=== PATIENT | male | born 1970 | race Caucasian/White ===

== ENCOUNTER → 2017-11-23 | Outpatient (CLI) | payer OTHER ==
[2017-11-23 16:05] LABS: BASO # 0.1 (0.0-0.2); BASO % 0.8 % (0.0-2.0); EOS # 0.4 (0.0-0.7); GRAN # 7.3 (1.4-6.5); GRAN % 69.7 % (42.2-75.2); HEMOGLOBIN 14.2 g/dl (13.5-18.0); LYMPH # 2.2 (1.2-3.4); LYMPH % 20.5 % (20.0-51.0); MEAN CELL VOLUME 94 fl (80.0-100.0); MEAN CORPUSCULAR HEMOGLOBIN 31 pg (27.0-31.0); MEAN CORPUSCULAR HGB CONC 33 g/dl (33.0-37.0); MEAN PLATELET VOLUME 9.2 fl (7.4-10.4); MONO # 0.5 (0.1-0.6); MONO % 4.6 % (1.7-9.3); PLATELET COUNT 426 K/mm3 (130-400); REDCELL DISTRIBUTION WIDTH-CV 13.4 % (11.5-14.5)
[2017-11-23 16:11] LABS: BILIRUBIN,TOTAL 0.9 mg/dL (0.0-1.0); CALCIUM 9.7 mg/dL (8.4-10.2); CREATININE, serum 0.87 mg/dL (0.66-1.25); POTASSIUM 4.1 mmol/L (3.4-5.0); TOTAL PROTEIN 7.6 gm/dL (6.4-8.2)
[2017-11-23 16:42] LABS: TSH w REFLEX 0.597 uIU/mL (0.465-4.680)
== END ==
LOC: COL.LAB 11:25
PROVIDERS: Family Medicine
DX: Z13.29 Encounter for screening for other suspected endocrine disorder (principal); E11.9 Type 2 diabetes mellitus without complications

== ENCOUNTER → 2018-02-12 | Outpatient (CLI) | payer OTHER | LOC: COL.LAB 14:09 | DX: H16.9 Unspecified keratitis (principal) ==

== ENCOUNTER 2018-08-09 18:18 | Inpatient (IN) | payer MEDICARE ==
[2018-08-09] VITALS (138 sets, daily range): O2SAT 87–100
[~2018-08-09] VITALS: Ht 190.5 cm; Wt 94.6 kg
[2018-08-09 19:07] LABS: BASO % 0.2 % (0.0-2.0); EOS # 0.2 (0.0-0.7); EOS % 1.2 % (0-4.0); GRAN # 9.6 (1.4-6.5); HEMATOCRIT 42.9 % (42.0-52.0); HEMOGLOBIN 14.7 g/dl (13.5-18.0); LYMPH # 0.7 (1.2-3.4); LYMPH % 5.7 % (20.0-51.0); MEAN CELL VOLUME 91 fl (80.0-100.0); MEAN CORPUSCULAR HEMOGLOBIN 31 pg (27.0-31.0); MEAN CORPUSCULAR HGB CONC 34 g/dl (33.0-37.0); MONO # 1.5 (0.1-0.6); MONO % 12.3 % (1.7-9.3); PLATELET COUNT 378 K/mm3 (130-400); RED BLOOD COUNT 4.74 M/mm3 (4.20-5.60); REDCELL DISTRIBUTION WIDTH-CV 11.9 % (11.5-14.5)
[2018-08-09 19:18] LABS: ACETONE,SERUM SMALL; ALANINE AMINOTRANSFERASE 34 U/L (21-72); ALBUMIN 4.8 gm/dL (3.5-5.0); ALKALINE PHOSPHATASE 118 U/L (50-136); ANION GAP 29 mmol/L (7-16); AST,SGOT 54 U/L (15-37); BILIRUBIN,TOTAL 0.8 mg/dL (0.0-1.0); BLOOD UREA NITROGEN 35 mg/dL (9-20); C-REACTIVE PROTEIN 4.7 mg/dL (0.0-0.9); CALCIUM 10.1 mg/dL (8.4-10.2); CHLORIDE 93 mmol/L (98-107); CREATININE, serum 1.51 mg/dL (0.66-1.25); LIPASE 17 U/L (23-300); POTASSIUM 4.5 mmol/L (3.4-5.0); SODIUM 135 mmol/L (137-145)
[2018-08-09 19:24] LABS: COLLECTION METHOD CLEAN CATCH
[2018-08-09 19:30] LABS: CARBON DIOXIDE 13 mmol/L (22-30); GLUCOSE 643 mg/dL (74-106)
[2018-08-09 19:32] LABS: MUCOUS Present /lpf; PH 5 (5-8); SQUAMOUS EPITHELIAL None Seen /hpf; URINE APPEARANCE Clear; URINE BACTERIA None Seen /hpf; URINE BILIRUBIN Negative (NEGATIVE); URINE BLOOD 1+ (NEGATIVE); URINE COLOR Colorless; URINE GLUCOSE 3+ (NEGATIVE); URINE KETONE 2+ (NEGATIVE); URINE LEUKOCYTE ESTERASE Negative (NEGATIVE); URINE NITRATE Negative (NEGATIVE); URINE PROTEIN(semi-quant) Negative (NEGATIVE); URINE RBC 0-2 /hpf; URINE UROBILINOGEN Negative (NEGATIVE)
[2018-08-09 19:56] LABS: ARTERIAL BLD GAS O2 SATURATION 95.6 % (92-100); ARTERIAL BLD GAS TCO2 CT 13.1; ARTERIAL BLOOD GAS BASE EXCESS -14.2 (-2-2); ARTERIAL BLOOD GAS HCO3 12.2 meq/L (22-26); ARTERIAL BLOOD GAS PCO2 30.5 mmHg (35-45); ARTERIAL BLOOD GAS PO2 93.4 mmHg (80-100); ARTERIAL BLOOD GAS pH 7.22 (7.35-7.45)
[2018-08-09 19:58] LABS: MAGNESIUM 2.6 mg/dL (1.6-2.3); PHOSPHOROUS 5.8 mg/dL (2.5-4.5)
[2018-08-09] MEDS ORDERED: SEROQUEL400 MG PO (20:12)
[2018-08-09] MEDS ORDERED: DESYREL 100MG100 MG PO (20:12)
[2018-08-09] MEDS ORDERED: LYRICA 100MG C100 M1 PO (20:12)
[2018-08-09 20:13] LABS: TROPONIN-I < 0.012 ng/mL (0.000-0.035)
[2018-08-09] MEDS ORDERED: LANTUS SOLOS100 U/ML SQ (20:13)
[2018-08-09] MEDS ORDERED: HUMALOGKP50/50 SQ (20:13)
[2018-08-09 20:29] LABS: THYROID STIMULATING HORMONE 0.499 uIU/mL (0.465-4.680)
--- NOTE | 2018-08-09 21:52 | NUR ---
Patient arrives to ICU room 2 via ED cart. He is unable follow more than simple commands and speech is garbled and confused. Patient sister at bedside and history is health retrieved from her. Patient is attached to monitors and assessment and vitals are as charted. ARTEMIO Medina at bedside. Patient is intermittently but persistently confused and attempting to pull out mauro catheter and climb from bed. Prn Ativan administered as documented per orders. Insulin gtt concentration and pump programming confirmed at bedside with LEAH Mackenzie. Care assumed at this time.
[2018-08-09 22:42] LABS: CALCIUM 8.5 mg/dL (8.4-10.2); CREATININE, serum 1.17 mg/dL (0.66-1.25); POTASSIUM 4.7 mmol/L (3.4-5.0)
--- NOTE | 2018-08-09 23:45 | NUR ---
Patient agitated and disoriented attempting to climb from bed. Unable to reorient patient at this time. See prn ativan dosing as per orders in AUG. This nurse stays at bedside while patient calms. Bed remains in low and locked position, call light within reach, rails up x3, bed alarm armed. Will continue to monitor.
[2018-08-10] VITALS (709 sets, daily range): BP systolic 92–149; BP diastolic 62–86; PULSE 75–135; TEMP 97–100.1; O2SAT 69–100
[2018-08-10 01:08] LABS: CALCIUM 8.3 mg/dL (8.4-10.2); CREATININE, serum 1.15 mg/dL (0.66-1.25); MAGNESIUM 2.3 mg/dL (1.6-2.3); PHOSPHOROUS 1.8 mg/dL (2.5-4.5); POTASSIUM 4.8 mmol/L (3.4-5.0)
[2018-08-10 02:39] LABS: CALCIUM 8.5 mg/dL (8.4-10.2); CREATININE, serum 1.11 mg/dL (0.66-1.25); POTASSIUM 4.5 mmol/L (3.4-5.0)
[2018-08-10 05:51] LABS: CALCIUM 8.7 mg/dL (8.4-10.2); CREATININE, serum 1.05 mg/dL (0.66-1.25); EOS % 0.3 % (0-4.0); GRAN # 6.5 (1.4-6.5); LYMPH # 1.8 (1.2-3.4); LYMPH % 18.4 % (20.0-51.0); MEAN CELL VOLUME 88 fl (80.0-100.0); MEAN CORPUSCULAR HGB CONC 35 g/dl (33.0-37.0); MONO # 1.2 (0.1-0.6); MONO % 12.9 % (1.7-9.3); PLATELET COUNT 289 K/mm3 (130-400); POTASSIUM 4.2 mmol/L (3.4-5.0); RED BLOOD COUNT 3.99 M/mm3 (4.20-5.60); REDCELL DISTRIBUTION WIDTH-CV 12.1 % (11.5-14.5)
[2018-08-10 05:54] LABS: HEMATOCRIT 35.2 % (42.0-52.0); MEAN CORPUSCULAR HEMOGLOBIN 31 pg (27.0-31.0)
[2018-08-10 05:55] LABS: HEMOGLOBIN 12.4 g/dl (13.5-18.0)
--- NOTE | 2018-08-10 07:10 | NUR ---
Pt asleep resting quietly until interventional tech distrupted pt which caused aggitation with pt stating "Yes sir, I am anxious" while pulling at mauro catheter line. Pt oreinted to self and person (grandmother and mother at bedside briefly to visit), disorited to place, situation, and month/year. Pt setting of bed alarm repositioning self to get out of bed - Pt unable to provide reason why. Bed alarm silenced and reset 3 times while in room performing assessment.
--- NOTE | 2018-08-10 09:11 | NUR ---
Pt becoming more anxious. Pt stated need for bowel movement, bedpan attempted with no BM. Gait belt applied, pt placed on bedside commode with no BM. Pt able to stand up in one singe movement but unsteady taking steps and standing upright. Pt placed back in bed, gait belt removed. remote encoding operations supervisor called stating concern for fall risk, continued pulling at mauro catheter line, and taking gown off - FIRE HYDRANT MECHANIC from 3rd floor will be sitter for pt.
[2018-08-10 10:05] LABS: CALCIUM 8.4 mg/dL (8.4-10.2); CREATININE, serum 0.94 mg/dL (0.66-1.25); POTASSIUM 4.3 mmol/L (3.4-5.0)
--- NOTE | 2018-08-10 10:29 | NUR ---
Pt continues making attempts to climb out of bed and pull at mauro catheter tubes. Soft mittens applied to both hands.
--- NOTE | 2018-08-10 11:00 | NUR ---
Pharmacist Jorge and MD Lorri contacted regarding insulin gtt and blood sugars. Jorge reccomended keeping insulin gtt at base starting rate of 5U/hr unitl SQ insulin started.
[2018-08-10] MEDS ORDERED: ATIVAN 0.50.5 MG/TAB PO (11:07)
--- NOTE | 2018-08-10 11:08 | NUR ---
Pharmacist at [facility] called to review medications. No short acting insulin has been picked up.
[2018-08-10 11:41] LABS: CALCIUM 8.6 mg/dL (8.4-10.2); CREATININE, serum 0.94 mg/dL (0.66-1.25); POTASSIUM 3.8 mmol/L (3.4-5.0)
[2018-08-10 13:42] LABS: CALCIUM 8.5 mg/dL (8.4-10.2); CREATININE, serum 0.89 mg/dL (0.66-1.25); POTASSIUM 3.7 mmol/L (3.4-5.0)
--- NOTE | 2018-08-10 13:59 | NUR ---
SW attempted to meet with the patient. The patient's nurse advised SW that the patient was not in a state to respond to questions. SW will attempt assessment at a later time.
--- NOTE | 2018-08-10 14:00 | NUR ---
Pt's sister Viridiana called, informed of MD Morgan's wish to intubate, perform CT scan, place central IV line, and lumbar puncture. MD Morgan spoke with Viridiana and consented family member of all aforementioned procedures, Pt then spoke with this RN and explained back to procedures correctly and agreed to administration of blood products if required. Anesthesia paged for intubation - no return call was recieved after 2 pages. MD Brock descided perform intubation himself.
--- NOTE | 2018-08-10 14:30 | NUR ---
Pt intubated without difficulty by MD Morgan with SisRN, myself, SAUL Zarate and RT Andrew at bedside. Vital signs remained stable, no hypoxia/dysrhythmia or hypotension occured. Family updated via phone.
--- NOTE | 2018-08-10 14:30 | NUR ---
Propofol and Fentanyl gtt initial starting rate per VORB from MD Morgan
[2018-08-10 15:37] LABS: CALCIUM 8.3 mg/dL (8.4-10.2); CREATININE, serum 0.94 mg/dL (0.66-1.25); POTASSIUM 4.4 mmol/L (3.4-5.0)
[2018-08-10 15:47] LABS: ARTERIAL BLD GAS O2 SATURATION 97.5 % (92-100); ARTERIAL BLD GAS TCO2 CT 19.2; ARTERIAL BLOOD GAS BASE EXCESS -6.1 (-2-2); ARTERIAL BLOOD GAS HCO3 18.3 meq/L (22-26); ARTERIAL BLOOD GAS PCO2 32.3 mmHg (35-45); ARTERIAL BLOOD GAS PO2 112.3 mmHg (80-100); ARTERIAL BLOOD GAS pH 7.37 (7.35-7.45)
--- NOTE | 2018-08-10 16:43 | NUR ---
No sedation vacation performed per VORB from MD Morgan
--- NOTE | 2018-08-10 17:30 | NUR ---
Sinan,ONLINE ADVERTISING DIRECTOR performed lumbar puncture without difficulty. Pt placed in position for procedeure. Vital signs remained stable. Pt placed supine with HOB elevated to 35 degrees.
--- NOTE | 2018-08-10 17:40 | NUR ---
Transport to/intra/return from CT scan went without difficulty. RT Andrew, Марина,SAUL and myself accompanied pt on transport monitor with vitals Q10 min.
--- NOTE | 2018-08-10 19:15 | NUR ---
Assessment complete; Unable to follow commands for this nurse. Will continue to monitor. No other concerns at this time.
--- NOTE | 2018-08-10 19:22 | NUR ---
Buck and Viridiana (pt's mother and sister) updated
[2018-08-10 21:23] LABS: ARTERIAL BLD GAS O2 SATURATION 96.9 % (92-100); ARTERIAL BLD GAS TCO2 CT 27.3; ARTERIAL BLOOD GAS BASE EXCESS 2.7 (-2-2); ARTERIAL BLOOD GAS HCO3 26.1 meq/L (22-26); ARTERIAL BLOOD GAS PO2 88.8 mmHg (80-100); ARTERIAL BLOOD GAS pH 7.48 (7.35-7.45)
[2018-08-10 21:31] LABS: COLLECTION METHOD CLEAN CATCH
[2018-08-10 21:57] LABS: GRANULAR CAST >12 /lpf; MUCOUS Present /lpf; PH 5 (5-8); SQUAMOUS EPITHELIAL 0-2 /hpf; URINE APPEARANCE Turbid; URINE BACTERIA Occasional /hpf; URINE BILIRUBIN Negative (NEGATIVE); URINE BLOOD 3+ (NEGATIVE); URINE COLOR Yellow; URINE GLUCOSE 2+ (NEGATIVE); URINE KETONE 1+ (NEGATIVE); URINE LEUKOCYTE ESTERASE Negative (NEGATIVE); URINE NITRATE Negative (NEGATIVE); URINE PROTEIN(semi-quant) 1+ (NEGATIVE); URINE UROBILINOGEN Negative (NEGATIVE)
[2018-08-10 21:59] LABS: TRICYCLIC ANTIDEPRESS URINE POSITIVE
[2018-08-10 23:22] LABS: GLUCOSE,CSF 132 mg/dL (40-70); TOTAL PROTEIN,CSF 39 mg/dL (15-45)
[2018-08-11] VITALS (859 sets, daily range): BP systolic 77–168; BP diastolic 49–87; PULSE 68–96; TEMP 98.5–101.3; O2SAT 70–100
--- NOTE | 2018-08-11 | NUR ---
Patient has been unable to follow commands or open eyes on command. Although, patient has been observed moving all extremities and moving head from side to side. Will continue to monitor.
[2018-08-11 01:24] LABS: CREATININE, serum 0.96 mg/dL (0.66-1.25); POTASSIUM 3.4 mmol/L (3.4-5.0)
[2018-08-11 01:43] LABS: CALCIUM 8.3 mg/dL (8.4-10.2)
--- NOTE | 2018-08-11 02:09 | NUR ---
Called E-ICU nurse to report latest BMP results. Awaiting orders.
--- NOTE | 2018-08-11 03:40 | NUR ---
Patient resting comfortably in bed on sedation. No concerns at this time.
[2018-08-11 04:46] LABS: BASO % 0.1 % (0.0-2.0); EOS % 0.6 % (0-4.0); GRAN # 4.3 (1.4-6.5); GRAN % 62.7 % (42.2-75.2); HEMOGLOBIN 10.5 g/dl (13.5-18.0); LYMPH # 1.9 (1.2-3.4); LYMPH % 28.1 % (20.0-51.0); MEAN CELL VOLUME 89 fl (80.0-100.0); MEAN CORPUSCULAR HEMOGLOBIN 31 pg (27.0-31.0); MEAN CORPUSCULAR HGB CONC 35 g/dl (33.0-37.0); MEAN PLATELET VOLUME 9.1 fl (7.4-10.4); MONO # 0.6 (0.1-0.6); MONO % 8.2 % (1.7-9.3); PLATELET COUNT 221 K/mm3 (130-400); RED BLOOD COUNT 3.39 M/mm3 (4.20-5.60); REDCELL DISTRIBUTION WIDTH-CV 12.6 % (11.5-14.5)
[2018-08-11 04:50] LABS: HEMATOCRIT 30.1 % (42.0-52.0)
[2018-08-11 05:01] LABS: ALBUMIN 2.9 gm/dL (3.5-5.0); BILIRUBIN,TOTAL 0.4 mg/dL (0.0-1.0); CALCIUM 8.3 mg/dL (8.4-10.2); CREATININE, serum 0.99 mg/dL (0.66-1.25); PHOSPHOROUS 1.3 mg/dL (2.5-4.5); POTASSIUM 3.7 mmol/L (3.4-5.0); TOTAL PROTEIN 5.3 gm/dL (6.4-8.2)
[2018-08-11 06:39] LABS: ARTERIAL BLD GAS O2 SATURATION 96.9 % (92-100); ARTERIAL BLOOD GAS BASE EXCESS 0.2 (-2-2); ARTERIAL BLOOD GAS HCO3 23.9 meq/L (22-26); ARTERIAL BLOOD GAS PCO2 35.4 mmHg (35-45); ARTERIAL BLOOD GAS PO2 95.5 mmHg (80-100); ARTERIAL BLOOD GAS pH 7.45 (7.35-7.45)
--- NOTE | 2018-08-11 07:02 | NUR ---
PT NOT ON SMART CARE DUE TO NOT BEING INTUBATED FOR OVER 24 HOURS. PT IS STILL IN DOCUMENTED SETTINGS.
--- NOTE | 2018-08-11 07:15 | NUR ---
Bedside report recieved from LEAH Mccarty - stated propofol decreased around 0600 for sedation vacation. Pt remains unable to follow commands or open eyes until oral and endotracheal suctioning performed - at that time pt does not follow commands but becomes aggitated turning head and moving arms. Family called, updates given, stated will not be coming in today to visit, all questions answered.
--- NOTE | 2018-08-11 07:15 | NUR ---
Bedside report given to LEAH Gary. Patient care transfered.
--- NOTE | 2018-08-11 08:15 | NUR ---
MD Morgan at bedside assessing pt
--- NOTE | 2018-08-11 09:39 | NUR ---
PT'S SETTINGS CHANGED AT THIS TIME PER DR. MARTELL @ BEDSIDE.
--- NOTE | 2018-08-11 11:40 | NUR ---
Pt moving head side to side with 5-10 strong coughs/min. Endotracheal suctioning performed with small amount of secretions. Oral care provided after coughing and head moving stopped
--- NOTE | 2018-08-11 14:36 | NUR ---
Patient lives with his sister, Viridiana Brown, ([phone]) in [place], [place] and plans to return home with his sister upon recovery. Patient is semi-independent with daily living activities while his sister is a clinical research specialist to the patient for medical and daily living needs. Patient has no durable medical equipment needs at this time, his primary care physician is James Dukes and Aaliyah Cleveland, his pharmacy is [facility], and he does not have [facility] paperwork completed at this time. Patient is disabled and has Type I diabetes. Patient has displaying symptoms of confusion yet sister is able to help with medical needs. No further needs at this time and high school social studies teacher will follow as needed.
--- NOTE | 2018-08-11 17:05 | NUR ---
Sedation vacation performed - pt able to open eyes, making purposful movement withdrawing from discomfort. Soon began to cough forcefully, sedation resumed at previous rate.
[2018-08-11 18:08] LABS: PHOSPHOROUS 3.4 mg/dL (2.5-4.5); POTASSIUM 4.4 mmol/L (3.4-5.0)
--- NOTE | 2018-08-11 20:00 | NUR ---
PT DIFFICULT TO ARROUSE. SEDATION DECREASED. ET TUBE DISCONNECTED FROM VENT WHILE BEDSIDE WITHOUT TOUCHING/MANIPULATING ET AND VENT TUBING. TUBING IMMEDIATELY RECONNCECTED. RT NOTIFIED.
[2018-08-11 21:07] LABS: ARTERIAL BLD GAS O2 SATURATION 93.5 % (92-100); ARTERIAL BLOOD GAS BASE EXCESS 0.8 (-2-2); ARTERIAL BLOOD GAS HCO3 24.9 meq/L (22-26); ARTERIAL BLOOD GAS PCO2 37.9 mmHg (35-45); ARTERIAL BLOOD GAS pH 7.44 (7.35-7.45)
[2018-08-11 21:29] LABS: PHOSPHOROUS 2.8 mg/dL (2.5-4.5); POTASSIUM 4.3 mmol/L (3.4-5.0)
--- NOTE | 2018-08-11 21:57 | NUR ---
VENT ALARMED. PT ET TUBE DISCONNECTED FROM VENT. RECONNECTED WITHIN 30 SECONDS OF VENT ALARMING. RT CONTACTED.
--- NOTE | 2018-08-11 22:14 | NUR ---
PTS ET TUBE DISCONNECTED FROM VENT. CORRECTED WITHIN THRITY SECONDS OF VENT ALARMING. VENT TUBE TIED TO ET TUBE STATON WITH STRING.
[2018-08-12] VITALS (221 sets, daily range): BP systolic 108–169; BP diastolic 69–105; PULSE 62–120; TEMP 98–99.9; O2SAT 78–100
--- NOTE | 2018-08-12 | NUR ---
PT OPENING EYES WHEN NAMED IS CALLED. PT NOT FOLLOWING COMMANDS, BUT MOVING BILAT ARMS AND LEGS.
--- NOTE | 2018-08-12 04:00 | NUR ---
PT OPENS EYES ON VERBAL COMMAND, BUT DOES NOT FOLLOW COMMANDS. PT DOES GRIMACE TO STERNAL RUB. PT FLEXING NECK TOWARDS PTS RIGHT CHEST/RIGHT SHOULDER. AFTER CORRECTING/EXTENDING THE PTS HEAD AND NECK TO NEUTRAL POSITION THE PT CONTINUED TO FLEX NECK BACK TOWARDS RIGHT CHEST/RIGHT SHOULDER. TOWEL TUCKED ON RIGHT SIDE OF NECK FOR PT COMFORT.
[2018-08-12 05:03] LABS: ARTERIAL BLD GAS O2 SATURATION 95.5 % (92-100); ARTERIAL BLD GAS TCO2 CT 27.5; ARTERIAL BLOOD GAS BASE EXCESS 1.9 (-2-2); ARTERIAL BLOOD GAS HCO3 26.3 meq/L (22-26); ARTERIAL BLOOD GAS PCO2 40.2 mmHg (35-45); ARTERIAL BLOOD GAS PO2 78.1 mmHg (80-100); ARTERIAL BLOOD GAS pH 7.43 (7.35-7.45)
--- NOTE | 2018-08-12 05:30 | NUR ---
PROPOFOL AND FENTYNL OFF.
[2018-08-12 05:56] LABS: BASO % 0.2 % (0.0-2.0); EOS % 0.3 % (0-4.0); GRAN # 3.6 (1.4-6.5); GRAN % 60.9 % (42.2-75.2); HEMOGLOBIN 10.6 g/dl (13.5-18.0); LYMPH # 1.7 (1.2-3.4); MEAN CELL VOLUME 91 fl (80.0-100.0); MEAN CORPUSCULAR HEMOGLOBIN 31 pg (27.0-31.0); MEAN CORPUSCULAR HGB CONC 34 g/dl (33.0-37.0); MEAN PLATELET VOLUME 9.2 fl (7.4-10.4); MONO # 0.5 (0.1-0.6); MONO % 9.1 % (1.7-9.3); PLATELET COUNT 154 K/mm3 (130-400); RED BLOOD COUNT 3.41 M/mm3 (4.20-5.60)
[2018-08-12 06:00] LABS: HEMATOCRIT 31.1 % (42.0-52.0)
[2018-08-12 06:10] LABS: ALBUMIN 2.9 gm/dL (3.5-5.0); BILIRUBIN,TOTAL 0.5 mg/dL (0.0-1.0); CALCIUM 8.1 mg/dL (8.4-10.2); CREATININE, serum 0.84 mg/dL (0.66-1.25); PHOSPHOROUS 2.4 mg/dL (2.5-4.5); POTASSIUM 3.9 mmol/L (3.4-5.0); TOTAL PROTEIN 5.4 gm/dL (6.4-8.2)
--- NOTE | 2018-08-12 06:15 | NUR ---
PT AGITATED AND ATTEMPTING TO PULL SELF DOWN IN BED AND REACHING FOR TUBE. RESTRAINTS SECURED. PT REPOSITIONED. SEDATION VACATION END AND GTTS RESUMED.
[2018-08-12 06:17] LABS: PRE ALBUMIN 7.6 mg/dL (17.6-36.0)
--- NOTE | 2018-08-12 07:15 | NUR ---
Bedside report received from Lexy LYNN. Medications verified at this time. Patient on sedation, intubated at this time.
--- NOTE | 2018-08-12 08:46 | NUR ---
PT PLACED ON SMARTCARE AT THIS TIME. PER DR. MARTELL GIVEN PRESSURE SUPPORT OF 5 AND PEEP OF 5. PT CONTINUES TO COUGH AND ALARM HIGH PEAK PRESSURE AND HIGH ETCO2. DR. MARTELL IS AWARE OF THIS. WILL DO ABG AT 09:30.
--- NOTE | 2018-08-12 09:00 | NUR ---
Patient extubated per verbal order Dr. Mora, procedure done by Andrew JOSEPH and Marty Martinez RN assisted at bedside. Tolerates well. Will continue to monitor
--- NOTE | 2018-08-12 09:04 | NUR ---
PT EXTUBATED AT THIS TIME PER DR. MARTELL VIA PHONE ORDER. PT TOLERATING WELL. SPO2 ON RA 96%, HR 113. RR 18. PT LEFT ON RA.
--- NOTE | 2018-08-12 09:11 | NUR ---
ABG WILL NOT BE COMPLETED PER DR. MARTELL AT THIS TIME.
--- NOTE | 2018-08-12 11:01 | NUR ---
Precedex started at this time via Dr. Mora's orders, bolus of 1mcg/kg given over 10 minutes. Will titrate as needed.
--- NOTE | 2018-08-12 12:10 | NUR ---
Family here, sister and mother, to visit with patient. History recieved and reviewed. Sister tearful, asked appropriate questions. Emotional support given.
--- NOTE | 2018-08-12 13:51 | NUR ---
Sister called about transfer to . Explained reason for transfer and risks of transfer, telephone consent obtained at this time and verified with Citlali Aviles RN, [facility].
--- NOTE | 2018-08-12 14:05 | NUR ---
PT TRANSFER ORDERS HAVE BEEN MADE. DID NOT DO BREATHING TX AT THIS TIME. PT VERY RESTLESS.
--- NOTE | 2018-08-12 14:49 | NUR ---
The patient is to transfer to [facility] today, 08/12. No additional needs at this time.
--- NOTE | 2018-08-12 16:30 | NUR ---
Report called to Dileep LYNN at ICU. [facility] here to get patient. BEdside report given at this time
--- NOTE | 2018-08-12 17:07 | NUR ---
To via EMS. Precedex drip mixed and sent along for transfer.
== END 2018-08-12 17:07 | disposition short-term general hospital (02) | DRG 637 ==
LOC: COL.ER 18:18 → ICU 20:09
PROVIDERS: Family Medicine; Hospitalist; Internal Medicine Pulmonary Disease; Nurse Practitioner Family; Psychiatry & Neurology Neurology; ADMIT Hospitalist
PROC: 5A1945Z Respiratory Ventilation, 24-96 Consecutive Hours (ICD-10-PCS; principal; 2018-08-10)
PROC: 009U3ZX Drainage of Spinal Canal, Percutaneous Approach, Diagnostic (ICD-10-PCS; 2018-08-10)
DX: E10.10 Type 1 diabetes mellitus with ketoacidosis without coma (principal); J96.01 Acute respiratory failure with hypoxia; G93.41 Metabolic encephalopathy; J09.X2 Influenza due to identified novel influenza A virus with other respiratory manifestations; Z79.4 Long term (current) use of insulin; E10.40 Type 1 diabetes mellitus with diabetic neuropathy, unspecified; E10.43 Type 1 diabetes mellitus with diabetic autonomic (poly)neuropathy; K31.84 Gastroparesis; F41.8 Other specified anxiety disorders; Z87.891 Personal history of nicotine dependence; E83.39 Other disorders of phosphorus metabolism
CPT/HCPCS: 99223-AI; 99233-AI; 99239; A4216; C1751; J1630; J1644; J1815; J1956; J2060; J2405; J2704; J3010; J3411; J3480; J3486; J7030; J7050; J7120

== ENCOUNTER 2018-11-11 13:09 | Emergency (ER) | payer MEDICARE ==
[~2018-11-11] VITALS: Ht 190.5 cm; Wt 100.0 kg
[~2018-11-11 13:09] MED LIST: ATIVAN 0.50.5 MG/TAB PO; DESYREL 100MG100 MG PO; HUMALOGKP50/50 SQ; LANTUS SOLOS100 U/ML SQ; LYRICA 100MG C100 M1 PO; SEROQUEL400 MG PO
[2018-11-11 13:10] VITALS: TEMP 98
[2018-11-11 13:37] LABS: BASO % 0.3 % (0.0-2.0); EOS % 0.1 % (0-4.0); HEMATOCRIT 40.5 % (42.0-52.0); HEMOGLOBIN 13.1 g/dl (13.5-18.0); LYMPH # 0.9 (1.2-3.4); LYMPH % 6.5 % (20.0-51.0); MEAN CELL VOLUME 96 fl (80.0-100.0); MEAN CORPUSCULAR HEMOGLOBIN 31 pg (27.0-31.0); MEAN CORPUSCULAR HGB CONC 32 g/dl (33.0-37.0); MEAN PLATELET VOLUME 9.3 fl (7.4-10.4); MONO # 1.2 (0.1-0.6); MONO % 8.6 % (1.7-9.3); PLATELET COUNT 368 K/mm3 (130-400); REDCELL DISTRIBUTION WIDTH-CV 11.9 % (11.5-14.5)
[2018-11-11 13:48] LABS: ACETONE,SERUM SMALL
[2018-11-11 13:49] LABS: ALANINE AMINOTRANSFERASE 8 U/L (21-72); ALBUMIN 3.9 gm/dL (3.5-5.0); ALKALINE PHOSPHATASE 121 U/L (50-136); ANION GAP 21 mmol/L (7-16); AST,SGOT 17 U/L (15-37); BILIRUBIN,TOTAL 0.8 mg/dL (0.0-1.0); BLOOD UREA NITROGEN 35 mg/dL (9-20); CALCIUM 9.3 mg/dL (8.4-10.2); CARBON DIOXIDE 21 mmol/L (22-30); CREATININE, serum 2.26 (0.66-1.25); MAGNESIUM 2.3 mg/dL (1.6-2.3); PHOSPHOROUS 7.3 mg/dL (2.5-4.5); SODIUM 129 mmol/L (137-145); TOTAL PROTEIN 6.6 gm/dL (6.4-8.2)
[2018-11-11 13:56] LABS: GLUCOSE 1127 mg/dL (74-106)
[2018-11-11 13:57] LABS: CHLORIDE 87 mmol/L (98-107)
[2018-11-11 13:59] LABS: COLLECTION METHOD CATHETER
[2018-11-11 13:59] LABS: TROPONIN-I < 0.012 ng/mL (0.000-0.035)
[2018-11-11] MEDS ORDERED: PROTONIX 40MG T40 MG PO (14:05)
[2018-11-11] MEDS ORDERED: PRINIVIL10 MG PO (14:05)
[2018-11-11 14:06] LABS: MUCOUS Present /lpf; PH 5 (5-8); SQUAMOUS EPITHELIAL 0-2 /hpf; URINE APPEARANCE Hazy; URINE BACTERIA None Seen /hpf; URINE BILIRUBIN Negative (NEGATIVE); URINE BLOOD Negative (NEGATIVE); URINE COLOR Yellow; URINE GLUCOSE 3+ (NEGATIVE); URINE KETONE Trace (NEGATIVE); URINE LEUKOCYTE ESTERASE Negative (NEGATIVE); URINE NITRATE Negative (NEGATIVE); URINE PROTEIN(semi-quant) Negative (NEGATIVE); URINE RBC 0-2 /hpf; URINE UROBILINOGEN Negative (NEGATIVE)
[2018-11-11 14:18] LABS: TRICYCLIC ANTIDEPRESS URINE POSITIVE
[2018-11-11] MEDS ORDERED: NORCO 325 MG-51 TAB PO (15:12)
[2018-11-11 15:31] LABS: ARTERIAL BLD GAS O2 SATURATION 88.5 % (92-100); ARTERIAL BLD GAS TCO2 CT 21.5; ARTERIAL BLOOD GAS BASE EXCESS -7.9 (-2-2); ARTERIAL BLOOD GAS PCO2 50.2 mmHg (35-45); ARTERIAL BLOOD GAS PO2 66.4 mmHg (80-100); ARTERIAL BLOOD GAS pH 7.22 (7.35-7.45)
[2018-11-11 15:45] VITALS: BP 107/59; PULSE 105
== END 2018-11-11 15:54 | disposition short-term general hospital (02) ==
LOC: COL.ER 13:09
PROVIDERS: Emergency Medicine
DX: E10.10 Type 1 diabetes mellitus with ketoacidosis without coma (principal); R41.82 Altered mental status, unspecified; F41.9 Anxiety disorder, unspecified; Z89.519 Acquired absence of unspecified leg below knee
CPT/HCPCS: J1815; J1956; J7030